=== PATIENT | female | born 1995 | race Caucasian/White ===

== ENCOUNTER 2021-05-17 07:21 | Day surgery (SDC) | payer BC, OTHER ==
[~2021-05-17] VITALS: Ht 160 cm; Wt 67.2 kg
[2021-05-17] MEDS ORDERED: AUROVELA 21 1.1 EACH PO (07:44)
[2021-05-17 07:53] VITALS: BP 111/76; PULSE 75; TEMP 98.1
--- NOTE | 2021-05-17 10:00 | NUR ---
The patient arrived back to [facility] via cart at this time. The patient ambulated to the cart with the stand by assistance with two nurses and appeared to tolerate the activity well. Vital signs were started at this time. The patient agrees to try some water and saltine crackers at this time. The patient's is at her bedside at this time. The patient's call light is within reach. Will continue to monitor the patient.
[2021-05-17 10:15] VITALS: BP 103/69; PULSE 66
--- NOTE | 2021-05-17 10:15 | NUR ---
The patient appears to be tolerating the food and drink well. The patient denies wanting anything further to eat or drink at this time. Will continue to monitor the patient.
[2021-05-17 10:30] VITALS: BP 104/63; PULSE 70
--- NOTE | 2021-05-17 10:30 | NUR ---
Dr. Paz is at the patient's bedside discussing the findings of the procedure.
[2021-05-17 10:45] VITALS: BP 106/66; PULSE 71
--- NOTE | 2021-05-17 10:45 | NUR ---
Discharge instructions were reviewed with the patient and her hubsand at this time. They both verbalized understanding and have no questions for the nurse at this time. The patient's IV to her right anecubital was removed and a pressure dressing was applied to the site. The nurse instructed the patient to get dressed and notify the staff when she is ready to be escorted out.
--- NOTE | 2021-05-17 10:50 | NUR ---
The patient was escorted out via wheelchair to a private vehicle by MORENA Ortega. The patient's belongings and discharge paperwork were sent with her. The patient's is present to drive her home.
[2021-05-17 11:14] VITALS: BP 102/69; PULSE 76; TEMP 98
== END 2021-05-17 10:55 | disposition home or self-care (01) ==
LOC: SDCO 07:21
DX: K52.89 Other specified noninfective gastroenteritis and colitis (principal); K50.10 Crohn's disease of large intestine without complications; K56.609 Unspecified intestinal obstruction, unspecified as to partial versus complete obstruction; D72.829 Elevated white blood cell count, unspecified
CPT/HCPCS: J2704